=== PATIENT | female | born 1995 | race Caucasian/White ===

== ENCOUNTER 2020-01-31 06:34 | Outpatient (CLI) | payer OTHER, SELFPAY ==
--- NOTE | 2020-01-31 07:30 | NEURO_ITS ---
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 A month ago she was in pain and was witnessed to have a grand mal seizure. CONDITION OF RECORDING: Awake, drowsy and sleep EEG DESCRIPTION: Basic resting occipital frequency consists of moderate amount of well organized low to medium voltage 8-10hz alpha mixed with low voltage 15- 18hz beta. Photic stimulation produced normal drive. Hyperventilation produced normal and symmetrical build-up. During drowsiness low voltage beta activity is seen diffusely mixed with waxing and waning posterior alpha rhythms. Bilateral symmetrical sleep activity is seen during sleep. Nonparoxysmal. Nonfocal. Nonlateralizing. IMPRESSION: Normal record. MTDD
== END 2020-01-31 06:35 | disposition home or self-care (01) ==
LOC: ANHNEURO 06:38
PROVIDERS: PCP Psychiatry & Neurology Neurology; Visit Provider Psychiatry & Neurology Neurology
DX: R56.9 Unspecified convulsions (principal)
CPT/HCPCS: 95816

== ENCOUNTER 2020-05-08 14:26 | Emergency (ER) | payer OTHER, SELFPAY ==
--- NOTE | ~2020-05-08 | US_ITS ---
EXAMINATION: US pelvic complete w TV DATE: 05/08/2020 17:11 INDICATION: Pelvic pain. Vaginal bleeding. TECHNIQUE: Multiple transabdominal and transvaginal sonographic images of the pelvis were obtained. COMPARISON: None. FINDINGS: TRANSABDOMINAL ULTRASOUND: The uterus measures 8.8 x 4.8 x 5.1 cm. There is trace free fluid in the pelvis. TRANSVAGINAL ULTRASOUND: The endometrial complex measures 19 mm in thickness. The right ovary measures 3.6 x 2.8 x 2.7 cm. The left ovary measures 4.0 x 2.3 x 2.6 cm. There is normal vascular flow in the ovaries. IMPRESSION: 1. Thickened endometrial complex. The differential diagnosis includes endometrial hyperplasia and johnathan yp. Reviewed, dictated and finalized at location A. T MANAGER IMPRESSION: 1. Thickened endometrial complex. The differential diagnosis includes endometri al hyperplasia and polyp.
[2020-05-08 15:23] VITALS: BP 119/58; PULSE 81; RESP 16; TEMP 36.5; O2SAT 100
[2020-05-08 15:49] LABS: Basophils Percent Auto 0.3 % (0.2-1.2); Eosinophils Absolute Auto 0.1 K/mm3 (0-0.3); Eosinophils Percent Auto 1.7 % (0-4.4); Hematocrit 35.8 % (37.0-47.0); Hemoglobin 11.9 g/dL (12.0-15.0); Immature Granulocyte Absolute 0.01 K/mm3 (0.00-0.031); Immature Granulocyte Percent A 0.2 % (0-0.5); Lymphocytes Absolute Auto 1.51 K/mm3 (0.9-3.2); Lymphocytes Percent Auto 25.8 % (18.3-44.2); Mean Corpuscular HGB Conc 33.2 g/dl (32-36); Mean Corpuscular Hemoglobin 29.8 pg (26-34); Mean Corpuscular Volume 89.7 fl (80-100); Mean Platelet Volume 9.5 fl (7.4-10.4); Monocytes Absolute Auto 0.4 K/mm3 (0.1-0.6); Monocytes Percent Auto 7.5 % (2.6-8.5); Neutrophils Absolute Auto 3.8 K/mm3 (1.3-6.7); Neutrophils Percent Auto 64.5 % (45.5-73.1); Platelet Count Result 321 k/mm3 (150-375); Red Blood Count 3.99 M/mm3 (4.2-5.4); Red Cell Distribution Width 12.5 % (11.5-14.5); White Blood Count 5.9 K/mm3 (4.5-10.0)
[2020-05-08 16:18] LABS: Beta HCG Quantitative < 2.39 mIU/ML
[2020-05-08 16:23] VITALS: BP 106/63; BP 115/85; BP 122/64; PULSE 84; PULSE 92; PULSE 98
--- NOTE | 2020-05-08 16:41 | ED.GENADULT ---
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 Related Data Home Medications Medication Instructions Recorded Confirmed calcium carbonate-vitamin D3 tablet PO 05/08/20 nitrofurantoin monohyd/m-cryst 05/08/20 Allergies Allergy/AdvReac Type Severity Reaction Status Date / Time No Known Allergies Allergy Verified 05/08/20 15:29 Review of Systems Review of Systems: All systems reviewed & are unremarkable except as noted in HPI and below PMFSH Social History Social History (Updated 05/08/20 @ 16:42 by Regino Schaefer PA-C) Smoking status: Never smoker Gender identity (if verbalized by the patient): Female Exam Narrative: Exam Narrative: GENERAL: Well-appearing, well-nourished, and in no acute distress. HEAD: Normocephalic, atraumatic. EYES: PERRLA and EOMI. ENT: Nares clear, no rhinorrhea or epistaxis. Mucous membranes moist. CHEST: Clear to auscultation. No respiratory distress. No wheezes rales or rhonchi HEART: Regular rate and rhythm. No murmur heard. Normal peripheral pulses. ABDOMEN: Soft, nontender, nondistended FEMALE GENITOURINARY: Small amount of blood in the vault no other abnormalities EXTREMITIES: Normal range of motion. No edema. SKIN: Warm, dry, no rash. NEURO: No focal deficits. Alert and oriented x3. Cranial nerves II through XII grossly intact. Normal speech and gait PSYCH: Normal mood and affect. Course Course Emergency Course: Patient in the room with vaginal bleeding no high risk changes in the blood work or ultrasound will be referred to gynecology for further evaluation felt appropriate for outpatient reevaluation afebrile nontoxic-appearing ABCs stable and intact normal vital signs Vital Signs Vital signs: Vital Signs Temperature 97.7 F 05/08/20 15:23 Pulse Rate 81 05/08/20 15:23 Respiratory Rate 16 05/08/20 15:23 Blood Pressure 119/58 L 05/08/20 15:23 Pulse Oximetry 100 05/08/20 15:23 Temperature 97.7 F 05/08/20 15:23 Pulse Rate 98 05/08/20 16:23 Respiratory Rate 16 05/08/20 15:23 Blood Pressure 122/64 05/08/20 16:23 Pulse Oximetry 100 05/08/20 15:23 Medical Decision Making MDM Narrative Medical decision making narrative: Patient with vaginal bleeding hemodynamically stable evaluated felt appropriate for continued evaluation by gynecology Vital Signs Vital Signs: Vital Signs Temperature 97.7 F 05/08/20 15:23 Pulse Rate 81 05/08/20 15:23 Respiratory Rate 16 05/08/20 15:23 Blood Pressure 119/58 L 05/08/20 15:23 Pulse Oximetry 100 05/08/20 15:23 Temperature 97.7 F 05/08/20 15:23 Pulse Rate 98 05/08/20 16:23 Respiratory Rate 16 05/08/20 15:23 Blood Pressure 122/64 05/08/20 16:23 Pulse Oximetry 100 05/08/20 15:23 Lab Data Result diagrams: 05/08/20 15:37 Labs: Lab Results 05/08/20 05/08/20 Range/Units 15:37 15:37 WBC 5.9 (4.5-10.0) K/mm3 RBC 3.99 L (4.2-5.4) M/mm3 Hgb 11.9 L (12.0-15.0) g/dL Hct 35.8 L (37.0-47.0) % MCV 89.7 (80-100) fl MCH 29.8 (26-34) pg MCHC 33.2 (32-36) g/dl RDW 12.5 (11.5-14.5) % Plt Count 321 (150-375) k/mm3 MPV 9.5 (7.4-10.4) fl Immature Gran % (Auto) 0.2 (0-0.5) % Neut % (Auto) 64.5 (45.5-73.1) % Lymph % (Auto) 25.8 (18.3-44.2) % [place] % (Aut
[2020-05-08 17:51] VITALS: BP 111/82; PULSE 86; RESP 18; O2SAT 99
== END 2020-05-08 17:52 | disposition home or self-care (01) ==
PROVIDERS: Emergency Medicine Emergency Medical Services; Emergency Provider Emergency Medicine
DX: N93.9 Abnormal uterine and vaginal bleeding, unspecified (principal)
CPT/HCPCS: 36415; 76830; 76856; 84702; 85025; 87070; 87491; 87591; 87808; 99284

== ENCOUNTER 2021-02-18 12:47 | Outpatient (CLI) | payer OTHER, SELFPAY ==
--- NOTE | ~2021-02-18 | US_ITS ---
US OB <= 14 weeks fetus DATE: 02/18/2021 13:30 INDICATION: Gestational age determination; unknown last menstrual period TECHNIQUE: Real-time imaging and Doppler analysis COMPARISON: None FINDINGS: The uterus measures 10.4 cm height, 5.7 cm AP dimension. There is a normally shaped intrauterine gestational sac, with normal surrounding hyperechogenicity co nsistent with decidual reaction. Normal amount of amniotic fluid. A pole and yolk sac are ident ified. heart rate of 163 bpm. Approximately 13.6 x 6.3 x 16 x 2 mm subchorionic fluid collection consistent with focal subchorionic hematoma. [place]-rump length measurement averages 2.40 cm, consistent with estimated gestational age of 9 weeks 1 day +/- 6 days 7: KAPIL: 09/22/2021. No pelvic mass lesion or abnormal free pelvic fluid collection is detected. IMPRESSION: Estimated gestational age: 9 weeks 1 day +/- 6 days KAPIL: 09/22/2021 Reviewed, dictated and finalized at Location [facility]. Reviewed, dictated and finalized at location A.
== END 2021-02-18 12:48 | disposition home or self-care (01) ==
PROVIDERS: Visit Provider Physician Assistant
DX: Z34.91 Encounter for supervision of normal pregnancy, unspecified, first trimester (principal); Z3A.09 9 weeks gestation of pregnancy
CPT/HCPCS: 76801

== ENCOUNTER 2021-05-07 11:23 | Outpatient (CLI) | payer OTHER, SELFPAY ==
--- NOTE | ~2021-05-07 | US_ITS ---
EXAMINATION: US OB /maternal detail DATE: 05/07/2021 12:31 INDICATION: Second trimester anatomic survey TECHNIQUE: Real-time ultrasound of the pelvis was performed. COMPARISON: None. FINDINGS: There is a single living fetus in breech presentation. The placenta is anterior and 3.1 cm from the i nternal cervical os. heart rate is 155 beats per minute (bpm). cardiac activity and feta l movement are noted. The amniotic fluid index is subjectively normal. The following anatomy was identified as normal: 4 chamber heart 3 vessel cord cord insertion kidneys urinary bladder stomach spine diaphragm ventricles cisterna magna cerebellum The following biometric data were obtained: Biparietal diameter (BPD): 4.4 cm; head circumference (HC): 16.9 cm; abdominal circumference (AC): 13 .7 cm; femur length (FL): 3.0 cm. These measurements are concordant. Estimated weight is 290 g +/- 43 g, which correlates with the 9th percentile when 09/22/2021 is used as estimated date of delivery. As single measurements, these parameters are each equal to the following estimated gestational ages w ith ranges of +/- 2 standard deviations: BPD: 19 weeks 3 days +/- 1 weeks 5 days. HC: 19 weeks 4 days +/- 1 weeks 3 days. AC: 19 weeks 1 days +/- 2 weeks 0 days. FL: 19 weeks 4 days +/- 1 weeks 6 days. estimated gestational age based solely on measurements from this exam is 19 weeks 3 days +/- 1 weeks 3 days. IMPRESSION: 1. Single living fetus in breech presentation. 2. Estimated weight is 290 g +/- 43 g, which correlates with the 9th percentile when 09/22/2021 is used as estimated date of delivery. Reviewed, dictated and finalized at location B. IMPRESSION: 1. Single living fetus in breech presentation. 2. Estimated weight is 290 g +/- 43 g, which correlates with the 9th perc entile when 09/22/2021 is used as estimated date of delivery.
== END 2021-05-07 11:24 | disposition home or self-care (01) ==
PROVIDERS: PCP Internal Medicine; Visit Provider Obstetrics & Gynecology
DX: Z34.92 Encounter for supervision of normal pregnancy, unspecified, second trimester (principal); Z3A.19 19 weeks gestation of pregnancy
CPT/HCPCS: 76805

== ENCOUNTER 2022-07-21 08:32 | Emergency (ER) | payer OTHER, SELFPAY ==
[2022-07-21] VITALS (8 sets, daily range): BP systolic 104–115; BP diastolic 71–81; PULSE 74–95; RESP 10–21; TEMP 36.6; O2SAT 98–100
--- NOTE | ~2022-07-21 | XR_ITS ---
Clinical Indication: Chest pain PA and lateral views of the chest: Comparison: None Findings: The lungs are clear, without evidence of focal consolidation or pleural effusion. Cardiome diastinal silhouette is within normal limits. Bones and soft tissues are unremarkable. Impression: Normal chest. Reviewed, dictated and finalized at location . CE ADMINISTRATION INSTRUCTOR Impression: Normal chest.
--- NOTE | 2022-07-21 08:34 | ECG_ITS ---
Measurements Intervals [place] Rate: 82 P: 33 [place]: 138 QRS: 50 QRSD: 98 T: 42 QT: 366 QTc: 428 Interpretive Statements SINUS RHYTHM INCOMPLETE RIGHT BUNDLE BRANCH BLOCK BASELINE ARTIFACT- I, II, III, AVR, AVL, AVF BORDERLINE ECG NO PREVIOUS ECG AVAILABLE FOR COMPARISON Electronically Signed On 07-21-2022 9:27:06 CANE LOADER by Lionel Blevins D.O.
--- NOTE | 2022-07-21 08:46 | ED.CHESTPAIN ---
HPI - Chest Pain General Chief Complaint: Chest Pain Stated Complaint: chest pain, back pain Time Seen by Provider: 07/21/22 08:33 History of Present Illness HPI narrative: 26yoM p/w low back pain last few days, has had history of this in the past when she was . Her period has been late and she is concerned for . She has been taking ibuprofen with minimal relief of pain. She states also that a few days ago she also had a sharp midsternal chest pain that worsened whenever she was moving her arms that felt like nerve pain, and that has completely resolved Related Data Home Medications Medication Instructions Recorded Confirmed calcium carbonate 600 mg-vitamin tablet PO 05/08/20 D3 10 mcg (400 unit) tablet nitrofurantoin 05/08/20 monohydrate/macrocrystals 100 mg capsule Allergies Allergy/AdvReac Type Severity Reaction Status Date / Time No Known Allergies Allergy Verified 05/08/20 15:29 Review of Systems Review of Systems: CONST: No fever. HEENT: No sore throat C/V: No chest pain RESP: Cough GI: Reports abdominal pain : No dysuria. M/S: No joint pain. SKIN: No rash. NEURO: [No headache or focal numbness or weakness] PSYCH: [No depression] [facility] Social History Social History (Updated 05/08/20 @ 16:42 by Regino Schaefer, PALesli) Smoking status: Never smoker Gender identity (if verbalized by the patient): Female Exam Narrative: EXAMINATION OF ORGAN SYSTEMS/BODY AREAS: Constitutional: Vital signs per nursing GENERAL:[No acute distress, non-toxic appearing.] HEAD: Normal with no signs of head trauma. EYES: EOMI, conjunctiva normal ENT: Hearing grossly intact LUNGS: Nonlabored breathing. HEART: [Regular rate and rhythm] ABD: [Soft], [nontender to palpation] BACK: Mild tenderness to palpation across back, no midline tenderness EXT: Normal range of motion SKIN: [No rashes or lesions.] NEURO: [Alert and oriented x 3. No gross focal sensory or strength deficits.] Ambulating with normal gait. PSYCH: Normal affect Course Vital Signs Vital signs: Vital Signs Temperature 97.8 F 07/21/22 08:36 Pulse Rate 95 07/21/22 08:36 Respiratory Rate 15 07/21/22 08:36 Blood Pressure 114/81 07/21/22 08:36 Pulse Oximetry 100 07/21/22 08:36 Oxygen Delivery Room Air 07/21/22 08:36 Temperature 97.8 F 07/21/22 08:36 Pulse Rate 95 07/21/22 08:36 Respiratory Rate 15 07/21/22 08:36 Blood Pressure 114/81 07/21/22 08:36 Pulse Oximetry 100 07/21/22 08:36 Oxygen Delivery Room Air 07/21/22 08:36 MDM - Chest Pain MDM Narrative Medical decision making narrative: ED COURSE AND MEDICAL DECISION MAKIN-year-old female with acute back pain. Normal motor and sensory exam. Patient able to ambulate. No evidence of acute cord compression, osteomyelitis/discitis or cauda equina without saddle anesthesia, urinary retention/incontinence, numbness/tingling in lower extremities, fever, history of IV drug use, cancer or immunosuppression. Doubt AAA or aortic dissection without severe pain/discomfort or any neurovascular deficits. My concern is for possible MSK pain, UTI/pyelonephritis, . test is negative, UA strongly positive and consistent with urinary tract infection. Chest x-ray here reviewed by myself and is unremarkable, EKG - 12-Lead: Performed at 0840. Interpreted by me. [Sinus rhythm]. Rate 82. [Normal] axis. ME-interval [normal]. QRS duration [normal]. QTc [normal]. [No ST segment elevation or depression]. [T-wave normal]. Impression: No EKG evidence of acute ischemia or dysrhythmia. On reevaluation, the symptoms are improved with lidocaine patches. Patient is able to rest more comfortably. Patient started on a dose of ceftriaxone here for her pyelonephritis, and given a prescription for antibiotics, patient is given return precautions with follow-up to primary care in 2 days, and instructed to come back at any point in time fo
[2022-07-21] MEDS: LIDOCAINE 5% PATCH 2 PATCH TRANSDERM (09:00)
[2022-07-21 09:01] LABS: Appearance Urine Cloudy (Clear); Bilirubin Urine Negative (Negative); Blood Urine Trace-intact (Negative); Color Urine Yellow (Yellow); Glucose Urine UA Negative (Negative); Ketones Urine Negative (Negative); Leukocyte Esterase Ur 2+ LEU/UL (Negative); Nitrate Urine Negative (Negative); Protein Urine Negative (Negative); Urobilinogen Urine 0.2 mg/dL (<2.0); pH Urine 5.5 (5.0-9.0)
[2022-07-21 09:04] LABS: Bacteria Urine Trace /hpf; Mucus Urine Rare /lpf; RBC Urine 21-50 /hpf (0-2); Squamous Epithelial Cell Urine Many /hpf (Few); Transitional Epi Cells Urine Rare /hpf (None Seen); WBC Urine >75 /hpf
[2022-07-21 09:18] LABS: Add Urine Microscopic? YES
== END 2022-07-21 11:30 | disposition home or self-care (01) ==
PROVIDERS: Emergency Provider Emergency Medicine; PCP Internal Medicine
DX: N12 Tubulo-interstitial nephritis, not specified as acute or chronic (principal); I45.10 Unspecified right bundle-branch block
CPT/HCPCS: 71046; 81001; 81025; 87086; 87088; 93005; 96365; 99284; A9270; J0696

== ENCOUNTER 2023-11-08 19:09 | Emergency (ER) | payer OTHER, SELFPAY ==
--- NOTE | ~2023-11-08 | CT_ITS ---
EXAMINATION: CT abdomen pelvis wo con DATE: 11/08/2023 20:08 INDICATION: Urinary tract infections and low back pain TECHNIQUE: Computed tomography (CT) of the abdomen and pelvis was performed without intravenous contr ast. Automated exposure control and iterative reconstruction technique were employed. The dose-length product was 1059.51 mGy-cm. COMPARISON: None FINDINGS: Lung bases are clear. Heart size is normal. No pericardial or pleural effusion. Liver, gallbladder, s pleen, pancreas and bilateral adrenal glands are normal. Kidneys and ureters are normal with no uroli thiasis, hydroureteronephrosis or perinephric/ureteral stranding. Bowels including the appendix are n ormal. Small fat-containing umbilical hernia. Bladder, anteverted uterus and bilateral adnexa are unr emarkable. No free intraperitoneal gas or fluid. No pathologically enlarged abdominal or pelvic lymph adenopathy. Mild thoracolumbar dextrocurvature. IMPRESSION: 1. No urolithiasis or acute intra-abdominal/pelvic process. Reviewed, dictated and finalized at location A.
[2023-11-08 19:32] VITALS: BP 126/86; PULSE 110; RESP 15; TEMP 36.9; O2SAT 100
--- NOTE | 2023-11-08 19:51 | ED.FEMALEGU ---
HPI - Female Genitourinary General Chief complaint: Urogenital-Female Stated complaint: dysuria Time Seen by Provider: 11/08/23 19:38 Source: patient Mode of arrival: ambulatory Limitations: no limitations History of Present Illness HPI Narrative: Patient is a 28-year-old female who presents with urinary complaints. Patient reports having dysuria, difficulty urinating, dribbling urine, small void urine for the last 1.5 weeks. Reports history of UTI/pyelonephritis in the past. States pain feels similar. Reports intermittent nausea, lower abdominal cramping, lower back pain. Denies fevers. Related Data Home Medications Medication Instructions Recorded Confirmed calcium carbonate 600 mg-vitamin tablet PO 05/08/20 D3 10 mcg (400 unit) tablet nitrofurantoin 05/08/20 monohydrate/macrocrystals 100 mg capsule Allergies Allergy/AdvReac Type Severity Reaction Status Date / Time No Known Allergies Allergy Verified 11/08/23 19:35 Review of Systems Review of Systems: CONSTITUTIONAL: Denies fever, chills, or sweats. GASTROINTESTINAL: See HPI. GENITOURINARY: See HPI. MUSCULOSKELETAL: See HPI All systems reviewed & are unremarkable except as noted in HPI and below PMFSH Social History Social History Smoking status: Never smoker Gender identity (if verbalized by the patient): Female Exam Narrative: GENERAL: Well appearing, obese with BMI of 38.4, non-toxic, in no acute distress. HEAD: Normocephalic, atraumatic. RESPIRATORY: Airway patent, respirations nonlabored. Clear to auscultation bilaterally, no rales, rhonchi, wheezing. CARDIOVASCULAR: Regular rate and rhythm without murmurs, rubs, or gallops. ABDOMINAL: Soft, no tenderness throughout abdomen, nondistended. Normoactive BS. No CVA tenderness to percussion. MUSCULOSKELETAL: Moves all extremities. No gross deformities. SKIN: Warm, dry, normal color. NEURO: A&O X3. Speech clear. Cranial nerves II-XII grossly intact. Steady gait. No ataxic movements. PSYCHIATRIC: Appropriate mood and affect. Normal interaction. Course Vital Signs Vital signs: Vital Signs Temperature 98.4 F 11/08/23 19:32 Pulse Rate 110 H 11/08/23 19:32 Respiratory Rate 15 11/08/23 19:32 Blood Pressure 126/86 11/08/23 19:32 Pulse Oximetry 100 11/08/23 19:32 Oxygen Delivery Room Air 11/08/23 19:32 Temperature 98.4 F 11/08/23 19:32 Pulse Rate 110 H 11/08/23 19:32 Respiratory Rate 15 11/08/23 19:32 Blood Pressure 126/86 11/08/23 19:32 Pulse Oximetry 100 11/08/23 19:32 Oxygen Delivery Room Air 11/08/23 19:32 MDM - Female Genitourinary MDM Narrative Medical decision making narrative: Patient presented to ED with 1.5 week history of urinary complaints. Mildly tachycardic upon arrival. In no acute distress. Afebrile. Basic laboratory studies without leukocytosis. Stable kidney function. Urine consistent with infection. Sent for culture. Ceftriaxone given the ED. Pyridium also given. CT abdomen pelvis obtained without evidence of ureterolithiasis or other intra-abdominal abnormality. Patient will be discharged on oral antibiotics for UTI. Advised to follow-up with primary care doctor for further evaluation, urine culture results. Recommended to stay well hydrated. Given return precautions. Discharged in stable condition. Medical Records Attestation: I reviewed the patient's medical records. Lab Data Attestation: I reviewed the patient's lab results. 11/08/23 19:56 11/08/23 19:56 Labs: Lab Results 11/08/23 11/08/23 Range/Units 19:43 19:56 WBC 6.0 (4.5-10.0) K/mm3 RBC 4.40 (4.2-5.4) M/mm3 Hgb 12.9 (12.0-15.0) g/dL Hct 38.8 (37.0-47.0) % MCV 88.2 (80-100) fl MCH 29.3 (26-34) pg MCHC 33.2 (32-36) g/dl RDW 13.2 (11.5-14.5) % Plt Count 365 (150-375) k/mm3 MPV 9.3 (7.4-10.4) fl Immat
[2023-11-08] MEDS: SODIUM CHLORIDE 0.9% IV 1,000 ML 999 ML IV CONT (19:57)
[2023-11-08 20:07] LABS: Basophils Percent Auto 0.3 % (0.2-1.2); Eosinophils Absolute Auto 0.1 K/mm3 (0-0.3); Eosinophils Percent Auto 2.2 % (0-4.4); Hematocrit 38.8 % (37.0-47.0); Hemoglobin 12.9 g/dL (12.0-15.0); Immature Granulocyte Absolute 0.01 K/mm3 (0.00-0.031); Immature Granulocyte Percent A 0.2 % (0-0.5); Lymphocytes Percent Auto 30.2 % (18.3-44.2); Mean Corpuscular HGB Conc 33.2 g/dl (32-36); Mean Corpuscular Hemoglobin 29.3 pg (26-34); Mean Corpuscular Volume 88.2 fl (80-100); Mean Platelet Volume 9.3 fl (7.4-10.4); Monocytes Absolute Auto 0.4 K/mm3 (0.1-0.6); Monocytes Percent Auto 7.4 % (2.6-8.5); Neutrophils Absolute Auto 3.6 K/mm3 (1.3-6.7); Neutrophils Percent Auto 59.7 % (45.5-73.1); Platelet Count Result 365 k/mm3 (150-375); Red Cell Distribution Width 13.2 % (11.5-14.5)
[2023-11-08 20:15] LABS: Appearance Urine Cloudy (Clear); Bacteria Urine 2+ /hpf; Bilirubin Urine Negative (Negative); Blood Urine 2+ (Negative); Color Urine Yellow (Yellow); Glucose Urine UA Negative (Negative); Ketones Urine Trace mg/dL (Negative); Leukocyte Esterase Ur 2+ LEU/UL (Negative); Nitrate Urine Negative (Negative); Non Pathogenic Casts 0-2; Protein Urine Trace mg/dL (Negative); Squamous Epithelial Cell Urine Few /hpf (Few); WBC Urine 51-100 /hpf (0-3)
[2023-11-08 20:18] LABS: Specific Grav Ur 1.031 (1.001-1.035)
[2023-11-08 20:19] LABS: Add Urine Microscopic? YES
[2023-11-08 20:21] LABS: Anion Gap 8 mmol/L (4-12); Blood Urea Nitrogen 12 mg/dL (7-17); Calcium 9.7 mg/dL (8.4-10.2); Carbon Dioxide 24 mmol/L (22-30); Chloride 109 mmol/L (98-107); Estimated CRCL calculation 114 ml/min; Estimated Glomerular Filt Rate > 60; Glucose 100 mg/dL (65-110); Sodium 141 mmol/L (137-145)
[2023-11-08] MEDS: PHENAZOPYRIDINE HCL 100 MG TABLET 200 MG PO (20:49)
[2023-11-08 21:03] VITALS: BP 124/72; PULSE 97; RESP 15; O2SAT 100
== END 2023-11-08 21:04 | disposition home or self-care (01) ==
PROVIDERS: Emergency Provider Physician Assistant; PCP Internal Medicine
DX: N30.01 Acute cystitis with hematuria (principal)
CPT/HCPCS: 36415; 74176; 80048; 81001; 81025; 85025; 87077; 87086; 87088; 87181; 96361; 96374; 99284; A9270; J0696; J7030

== ENCOUNTER 2024-06-24 18:32 | Emergency (ER) | payer OTHER, SELFPAY ==
--- NOTE | 2024-06-24 19:42 | PC.NURSE ---
Pt and family came up to triage desk and states we will just come back in the morning . Pt left without being seen by provider.
== END 2024-06-24 19:43 | disposition left against medical advice (07) ==
PROVIDERS: PCP Internal Medicine
DX: Z53.21 Procedure and treatment not carried out due to patient leaving prior to being seen by health care provider (principal)
CPT/HCPCS: 99199